=== PATIENT | female | born 1960 | race Caucasian/White ===

== ENCOUNTER 2024-12-06 12:06 | Emergency (ER) | payer MEDICARE, SELFPAY ==
[2024-12-06] MEDS: ZOFRAN ODT (ORALLY DISINTEGRATING) 4 MG PO ×2 (12:26→16:20)
[2024-12-06 12:36] LABS: Urine Albumin Negative (Neg - Trace); Urine Bilirubin Negative (Negative); Urine Character Clear (Clear); Urine Color Yellow; Urine Glucose Negative (Negative); Urine Ketone 1+ (Negative); Urine Leukocyte 1+ (Negative); Urine Nitrite Negative (Negative); Urine Occult Blood 1+ (Negative); Urine Specific Gravity 1.025 (<1.030); Urine Urobilinogen 1+ (Neg - 1+)
[2024-12-06 12:37] LABS: % Basophils 0.5 % (0-2); % Eosinophils 0.5 % (0-6); % Immature Granulocytes 0.2 % (0-0.5); % Monocytes 3.8 % (1.7-9.3); Absolute Basophils 0.1 10^3/uL (0-0.2); Absolute Eosinophils 0.1 10^3/uL (0-0.7); Absolute Lymphocytes 4.3 10^3/uL (1.2-3.4); Absolute Monocytes 0.5 10^3/uL (0.1-0.6); Absolute Neutrophils 8.1 10^3/uL (1.4-6.5); Hematocrit 40.9 % (37.0-47.0); Hemoglobin 14.2 g/dL (12.0-16.0); Mean Corp Hgb Conc. 34.7 g/dL (33.0-37.0); Mean Corpuscular Hgb 29.6 pg (27.0-31.0); Mean Corpuscular Volume 85.4 fL (81.0-99.0); Mean Platelet Volume 9.6 fL (7.4-10.4); Nucleated Red Blood Cells % 0 %; Platelet Count 151 10^3/uL (130-400); Red Blood Cell Count 4.79 10^6/uL (4.20-5.40); Red Cell Dist. Width 12.3 % (11.5-14.5)
[2024-12-06 13:03] LABS: ALT (SGPT) 27 U/L (0-35); AST (SGOT) 26 U/L (14-36); Albumin 4.7 g/dl (3.5-5.0); Alkaline Phosphatase 96 U/L (38-126); Blood Urea Nitrogen 22 mg/dl (7-17); Calcium 9.9 mg/dl (8.4-10.2); Carbon Dioxide 24 mmol/L (22-30); Chloride 109 mmol/L (98-107); Glucose 178 mg/dl (70-99); Lipase 52 U/L (23-300); Potassium 4.2 mmol/L (3.5-5.1); Sodium 141 mmol/L (135-145); Total Bilirubin 0.8 mg/dl (0.2-1.3); Total Protein 7.3 g/dl (6.3-8.2); eGFR > 60.00
[2024-12-06 13:21] LABS: Urine Bacteria Few (Negative)
[2024-12-06] MEDS: TORADOL 15 MG IV (14:59)
[2024-12-06] MEDS: ZOFRAN 4 MG IV (14:59)
[2024-12-06] MEDS: PROTONIX IV 40 MG IV (14:59)
[2024-12-06] MEDS: NSS 1000 IV (14:59)
[2024-12-06 15:31] VITALS: BP 111/64
--- NOTE | 2024-12-06 16:16 | ED.GENMED ---
History of Present Illness
General
Chief Complaint: Abdominal Symptoms
Source: patient
Exam Limitations: none
Time Seen by Provider: 12/06/24 14:17
Nursing documentation reviewed up to this point in time: agreed with
History of Present Illness
History of Present Illness:
Patient presents to ED secondary to multiple episodes of nausea, vomiting, and nonbloody diarrhea since waking up this morning. Patient is currently visiting as she attended wedding last night. Patient states that she has had 1 similar episode in
the past, secondary to food poisoning. Denies abdominal cramping sensation. Denies fever or chills. Denies dizziness. Denies chest pain or shortness of breath. Denies recent illness. Denies recent travel. Denies recent change in medications
or diet. Patient spouse consumed same meals yesterday, except he did not have any show ribs nor hummus.
Review of Systems
Review of Systems
Allergies reviewed?: Yes
All Other Systems: ROS reviewed and negative except as documented in HPI and ROS
Constitutional: Reports no symptoms; Denies fever
ABD/GI: Reports abdominal pain, nausea, vomiting and diarrhea
Musculoskeletal: Reports no symptoms
Skin: Reports no symptoms
Neurological: Reports no symptoms
Phy Exam
Physical Exam
Physical Exam:
Physical Exam
General: mild distress, not acutely ill. afebrile
Head: nc/at. eomi
Neck: supple. no meningeal signs.
Abdomen: normal bowel sounds. not tender. no distention
Neuro: alert and oriented x 3. no focal neurological deficits
Skin: no rash
Psychiatric: well kept. interactive and cooperative
Extremities: no edema. no calf tenderness.
Course
Orders/Labs/Results
Orders:
Orders
12/06/24 12:23
Ondansetron Orally Disint [Zofran Odt (Orally Disintegrating)] 4 mg PO NOW STA
12/06/24 12:28
Complete Blood Count/With Diff Urgent
Comprehensive Metabolic Panel Urgent
Lipase Urgent
Urinalysis Reflex To Culture Urgent
Date Specimen was Collected: 12/06/24
Time Specimen was Collected: 12:18
Urine Microscopic Reflex Cult Urgent
Urine Culture Urgent
MARGARITA Source: U
Specimen Description:
Date Specimen was Collected: 12/06/24
Time Specimen was Collected: 12:18
12/06/24 14:34
0.9% Sodium Chloride 1000 ml [Nss] 1,000 ml IV BOLUS
Ketorolac [Toradol] 15 mg IV NOW STA
Ondansetron Injectable [Zofran] 4 mg IV NOW STA
Pantoprazole [Protonix IV] 40 mg IV NOW STA
12/06/24 16:16
Ondansetron Orally Disint [Zofran Odt (Orally Disintegrating)] 4 mg PO NOW STA
Abnormal Lab Results
12/06/24
12:28
WBC 13.0 H 10^3/uL
(4.8-10.8)
Absolute Neuts (auto) 8.1 H 10^3/uL
(1.4-6.5)
Absolute Lymphs (auto) 4.3 H 10^3/uL
(1.2-3.4)
Chloride 109 H mmol/L
(98-107)
BUN 22 H mg/dl
(7-17)
Glucose 178 H mg/dl
(70-99)
Urine Ketones 1+ A
(Negative)
Ur Occult Blood Reflex 1+ A
(Negative)
Leukocyte Esterase Rfl 1+ A
(Negative)
Urine RBC 3-6 A /HPF
(0-2)
Urine Bacteria (Reflex) Few A
(Negative)
12/06/24 12:28
12/06/24 12:28
Vital Signs
Initial and Last Documented VS:
Initial Vital Signs
Pulse Resp BP Pulse Ox
99 18 111/64 99
12/06/24 15:31 12/06/24 15:31 12/06/24 15:31 12/06/24 15:31
Last Documented Vital Signs
Pulse Resp BP Pulse Ox
99 18 111/64 99
12/06/24 15:31 12/06/24 15:31 12/06/24 15:31 12/06/24 15:31
MDM/Problems Addressed
MDM/Problems Addressed:
History and exam consistent with likely symptoms secondary to food poisoning versus viral gastroenteritis. Repeat abdominal exam: Soft and nontender. Patient reports significant improvement in symptoms after treatment. Patient feels comfortable
going home at this time. Patient will continue hydration and follow-up with PCP as an outpatient, or will to ED with worsening symptoms.
*Critical Care Note
Total Time (30-74mins, 75-104mins- exclusive of procedures): Not Applicable
ED Attending Note
-
Portions of this chart may have been created with voice recognition software.� Occasional wrong word or��sound alike� substitutions may have occurred due to the inherent limitations of voice recognition software.
Discharge Plan
Departure
Patient Disposition: Home (Routine Discharge)
Patient with high blood pressure during this ER visit?: No
Discharge Problem:
Gastroenteritis
Instructions: Viral gastroenteritis in adults
Prescriptions:
New
ondansetron 4 mg Tablet,Disintegrating
4 mg PO TIDPRN PRN (Reason: nausea/vomiting) Qty: 12 0RF
Referrals:
NONE,* [Family Provider, Internal Medicine]
Activity Restrictions/Additional Instructions:
As discussed, please follow-up with your primary care physician with any further concerns.
Interventions
Interventions:
*Risk Screen - Suicide Last Done: 12/06/24 14:30
*General Assessment Last Done: 12/06/24 14:30
*Neglect/Abuse Screening Last Done: 12/06/24 14:30
*ED- Fall Risk Assessment Last Done: 12/06/24 14:30
*ED COVID-19 Vaccine History Last Done: 12/06/24 14:30
*Nursing Disposition Last Done: 12/06/24 16:22
RD-Vvnafh-[facility] Assessment Last Done: 12/06/24 14:30
Discharge Date and Time
Discharge Date/Time: 12/06/24 16:25
Print Language: ICELANDIC
== END 2024-12-06 16:25 | disposition home or self-care (01) ==
LOC: EMR 12:06
PROVIDERS: EMERGENCY PHYSICIAN Emergency Medicine
DX: K52.9 Noninfective gastroenteritis and colitis, unspecified (principal); R10.9 Unspecified abdominal pain; E11.9 Type 2 diabetes mellitus without complications; Z79.84 Long term (current) use of oral hypoglycemic drugs
CPT/HCPCS: 99284; 96374; 96375; 96361; 80053; 81003; 81015; 83690; 85025; 87086